=== PATIENT | female | born 1975 ===

== ENCOUNTER 2016-04-25 08:11 | Emergency (ER) ==
[2016-04-25 08:18] VITALS: BP 125/72
[2016-04-25 08:38] LABS: URINE MICRO REVIEW NEEDED? NO; URINE SOURCE CLEAN CATCH
[2016-04-25 08:47] LABS: BILIRUBIN URINE NEGATIVE (NEGATIVE); BLOOD URINE TRACE (NEGATIVE); COLOR YELLOW; GLUCOSE URINE NEGATIVE (NEGATIVE); LEUKOCYTES URINE NEGATIVE (NEGATIVE); NITRITE URINE NEGATIVE (NEGATIVE); PH URINE 5.5; PROTEIN URINE NEGATIVE (NEGATIVE); TURBIDITY URINE HAZY (CLEAR); UROBILINOGEN URINE NORMAL (NORMAL)
[2016-04-25 08:49] LABS: UR EPITHELIAL CELLS >10 /HPF (<10); URINE BACTERIA 3+ /HPF; URINE CULTURE NEEDED? YES; URINE RBC <10 /HPF (<10); URINE WBC <10 /HPF (<10)
== END 2016-04-25 08:36 | disposition left against medical advice (07) ==
LOC: ED 08:11
DX: R10.9 Unspecified abdominal pain (principal); R39.9 Unspecified symptoms and signs involving the genitourinary system; Z53.21 Procedure and treatment not carried out due to patient leaving prior to being seen by health care provider; N39.0 Urinary tract infection, site not specified
CPT/HCPCS: 81001; 87088